=== PATIENT | female | born 1945 | race Caucasian/White ===

== ENCOUNTER 2019-05-19 08:06 | Outpatient (CLI) | payer MEDICARE ==
[2019-05-19 10:06] LABS: CREATININE,URINE 139.8 mg/dL; HB2 TOTAL 12.3 g/dL; HEMOGLOBIN A1C 0.58 g/dL; HEMOGLOBIN A1C % 6.5 % (4.6-6.2); MICROALBUM/CREATININE RATIO,UR 2.9 ug/mg (<30.0); MICROALBUMIN,URINE 0.4 mg/dL (0-300.0)
[2019-05-19 10:08] LABS: ALBUMIN 4.2 g/dL (3.2-5.5); ALBUMIN/GLOBULIN RATIO 1.3 (1.0-2.2); ALKALINE PHOSPHATASE 52 IU/L (42-121); ALT ALANINE AMINOTRANSFERASE 18 IU/L (10-60); AST ASPARTATE AMINOTRANSFERASE 21 IU/L (10-42); BILIRUBIN,TOTAL 0.6 mg/dL (0.2-1.0); BUN - BLOOD UREA NITROGEN 28 mg/dL (6-20); CALCIUM 9.8 mg/dL (8.5-10.3); CARBON DIOXIDE - CO2 26 mmol/L (21-32); CHLORIDE 102 mmol/L (101-111); CHOL/HDL RATIO 3.2 (<4.4); CHOLESTEROL 201 mg/dL; CREATININE 1.2 mg/dL (0.4-1.0); GFR - MDRD 44 (>89); GLUCOSE 136 mg/dL (70-100); HDL CHOLESTEROL 63 mg/dL; LDL CHOLESTEROL,CALCULATED 114 mg/dL; LDL/HDL RATIO 1.8 (<4.4); SODIUM 138 mmol/L (135-145); TOTAL PROTEIN 7.5 g/dL (6.7-8.2); VLDL CHOLESTEROL 24 mg/dL
== END 2019-05-19 08:07 | disposition home or self-care (01) ==
LOC: LAB.S 08:06
PROVIDERS: ATTEND Family Medicine
DX: E11.9 Type 2 diabetes mellitus without complications (principal); E78.5 Hyperlipidemia, unspecified; I25.10 Atherosclerotic heart disease of native coronary artery without angina pectoris; I35.0 Nonrheumatic aortic (valve) stenosis; I48.91 Unspecified atrial fibrillation; Z95.3 Presence of xenogenic heart valve
CPT/HCPCS: 36415; 80053; 80061; 82043; 82570; 83036; 83721

== ENCOUNTER 2019-08-11 08:17 | Outpatient (CLI) | payer MEDICARE | END 2019-08-11 08:18 | disposition home or self-care (01) | LOC: LAB.S 08:17 | PROVIDERS: ATTEND Ophthalmology | DX: Z01.812 Encounter for preprocedural laboratory examination (principal); Z20.828 Contact with and (suspected) exposure to other viral communicable diseases | CPT/HCPCS: 81599 ==

== ENCOUNTER 2019-12-16 08:59 | Outpatient (CLI) | payer MEDICARE ==
[2019-12-16 17:09] LABS: ALBUMIN/GLOBULIN RATIO 1.3 (1.0-2.2); ALKALINE PHOSPHATASE 53 IU/L (42-121); ALT ALANINE AMINOTRANSFERASE 16 IU/L (10-60); AST ASPARTATE AMINOTRANSFERASE 20 IU/L (10-42); BILIRUBIN,TOTAL 0.5 mg/dL (0.2-1.0); BUN - BLOOD UREA NITROGEN 25 mg/dL (6-20); CALCIUM 9.9 mg/dL (8.5-10.3); CARBON DIOXIDE - CO2 28 mmol/L (21-32); CHLORIDE 103 mmol/L (101-111); CHOLESTEROL 179 mg/dL; GLUCOSE 136 mg/dL (70-100); HDL CHOLESTEROL 59 mg/dL; LDL CHOLESTEROL,CALCULATED 90 mg/dL; LDL/HDL RATIO 1.5 (<4.4); SODIUM 139 mmol/L (135-145); TOTAL PROTEIN 7.2 g/dL (6.7-8.2); VLDL CHOLESTEROL 30 mg/dL
[2019-12-16 17:16] LABS: CREATININE,URINE 103.2 mg/dL
[2019-12-16 17:39] LABS: MICROALBUMIN,URINE < 0.2 mg/dL (0-300.0)
[2019-12-16 20:24] LABS: HEMOGLOBIN A1c% 6.2 % (4.27-6.07)
== END 2019-12-16 09:00 | disposition home or self-care (01) ==
LOC: LAB.S 08:59
PROVIDERS: ATTEND Family Medicine
DX: E11.9 Type 2 diabetes mellitus without complications (principal); E78.5 Hyperlipidemia, unspecified; I25.10 Atherosclerotic heart disease of native coronary artery without angina pectoris; I35.0 Nonrheumatic aortic (valve) stenosis; I48.91 Unspecified atrial fibrillation; Z95.3 Presence of xenogenic heart valve
CPT/HCPCS: 36415; 80053; 80061; 82043; 82570; 83036; 83721

== ENCOUNTER 2021-01-31 14:50 | Outpatient (CLI) | payer MEDICARE ==
--- NOTE | 2021-01-31 16:58 | XRAY Report ---
PROCEDURE: Hips 2V BILAT INDICATIONS: HIP PAIN TECHNIQUE: AP view of the pelvis and bilateral frog-leg lateral views of the hips were acquired. COMPARISON: None FINDINGS: Bones: No fractures or dislocations. No suspicious bony lesions. The visualized pelvic ring appear s intact. Soft tissues: No suspicious soft tissue calcifications or masses. IMPRESSION: No evidence acute bony abnormality of the pelvis and bilateral hips. If clinical suspicion and/or symptoms persist, further assessment with repeat plain films or advanced imaging (e.g., CT, MRI, or bone scan) may be helpful for further assessment. Reviewed by: Khari Gutierrez MD on 01/31/2021 4:57 PM PST Approved by: Khari Gutierrez MD on 01/31/2021 4:57 PM PST Station ID: [id number]
== END 2021-01-31 14:51 | disposition home or self-care (01) ==
LOC: DI.S 14:50
PROVIDERS: ATTEND Family Medicine
DX: M25.551 Pain in right hip (principal)

== ENCOUNTER 2021-03-22 07:45 | Outpatient (CLI) | payer MEDICARE ==
[2021-03-22 15:32] LABS: BASOPHILS % (AUTO) 0.4 %; EOSINOPHILS # (AUTO) 0.2 10^3/uL (0.0-0.7); EOSINOPHILS % (AUTO) 4.7 %; HCT - HEMATOCRIT 35.9 % (37.0-47.0); HGB - HEMOGLOBIN 11.6 g/dL (12.0-16.0); LYMPHOCYTES # (AUTO) 1.4 10^3/uL (1.5-3.5); LYMPHOCYTES % (AUTO) 31.8 %; MEAN CORPUSCULAR HEMOGLOBIN 30.1 pg (27.0-31.0); MEAN CORPUSCULAR HGB CONC 32.3 g/dL (32.0-36.0); MEAN CORPUSCULAR VOLUME 93.2 fL (81.0-99.0); MEAN PLATELET VOLUME 11.8 fL (7.9-10.8); MONOCYTES # (AUTO) 0.3 10^3/uL (0.0-1.0); MONOCYTES % (AUTO) 7.1 %; NEUTROPHILS # (AUTO) 2.5 10^3/uL (1.5-6.6); NEUTROPHILS % (AUTO) 55.8 %; PLT - PLATELET COUNT 212 10^3/uL (130-450); RED BLOOD COUNT 3.85 10^6/uL (4.20-5.40); RED CELL DISTRIBUTION WIDTH 11.9 % (12.0-15.0); WHITE BLOOD COUNT 4.5 x10^3/uL (4.8-10.8)
[2021-03-22 15:56] LABS: % IRON SATURATION 19 % (20-50); ALBUMIN 3.9 g/dL (3.2-5.5); ALBUMIN/GLOBULIN RATIO 1.3 (1.0-2.2); ALKALINE PHOSPHATASE 57 IU/L (42-121); ALT ALANINE AMINOTRANSFERASE 15 IU/L (10-60); AST ASPARTATE AMINOTRANSFERASE 19 IU/L (10-42); BILIRUBIN,TOTAL 0.7 mg/dL (0.2-1.0); BUN - BLOOD UREA NITROGEN 30 mg/dL (6-20); CALCIUM 9.9 mg/dL (8.5-10.3); CARBON DIOXIDE - CO2 27 mmol/L (21-32); CHLORIDE 101 mmol/L (101-111); CHOL/HDL RATIO 2.4 (<4.4); CHOLESTEROL 181 mg/dL; CREATININE 1.1 mg/dL (0.4-1.0); GFR - MDRD 49 (>89); GLUCOSE 141 mg/dL (70-100); HDL CHOLESTEROL 75 mg/dL; IRON 74 ug/dL (28-170); LDL CHOLESTEROL,CALCULATED 88 mg/dL; LDL/HDL RATIO 1.2 (<4.4); POTASSIUM 4.4 mmol/L (3.5-5.0); SODIUM 138 mmol/L (135-145); TOTAL IRON BINDING CAPACITY 382 ug/dL (250-450); TOTAL PROTEIN 6.9 g/dL (6.7-8.2); TRANSFERRIN 273 mg/dL (192-382); TRIGLYCERIDES 88 mg/dL; VLDL CHOLESTEROL 18 mg/dL
[2021-03-22 16:00] LABS: CREATININE,URINE 82.8 mg/dL; MICROALBUM/CREATININE RATIO,UR 4.8 ug/mg (<30.0); MICROALBUMIN,URINE 0.4 mg/dL (0-300.0)
[2021-03-22 17:13] LABS: ESTIMATED AVERAGE GLUCOSE 140 mg/dL (70-100); HEMOGLOBIN A1c% 6.5 % (4.27-6.07)
== END 2021-03-22 07:46 | disposition home or self-care (01) ==
LOC: LAB.S 07:45
PROVIDERS: ATTEND Family Medicine
DX: D64.9 Anemia, unspecified (principal); E11.9 Type 2 diabetes mellitus without complications; E78.5 Hyperlipidemia, unspecified
CPT/HCPCS: 36415; 80053; 80061; 82043; 82570; 83036; 83540; 83721; 84466; 85025

== ENCOUNTER 2021-12-28 13:29 | Outpatient (CLI) | payer MEDICARE, BC ==
[2021-12-28 20:00] LABS: ALBUMIN 4.2 g/dL (3.2-5.5); PHOSPHORUS 4.1 mg/dL (2.5-4.6); POTASSIUM 4.3 mmol/L (3.5-5.0)
== END 2021-12-28 13:30 | disposition home or self-care (01) ==
LOC: LAB.S 13:29
PROVIDERS: ATTEND Family Medicine
DX: R79.89 Other specified abnormal findings of blood chemistry (principal)
CPT/HCPCS: 36415; 80069

== ENCOUNTER 2022-03-21 09:42 | Emergency (ER) | payer MEDICARE, BC ==
--- OUTSIDE RECORDS SUMMARY | 2022-03-21 09:48 | EXTERNAL MEDICAL SUMMARY RPT | Continuity of Care Document ---
:1945 Author Organization [facility] Address [address] [place] [address] Phone Care Team Providers Name Role Phone Unavailable Unavailable Unavailable Mery, Provider Unavailable Unavailable Allergies No information. Encounters No information. Functional Status No information. Immunizations No information. Medications date description facility 2022-01-16 00:00 [facility]coxib [facility] 2022-01-17 00:00 celecoxib [facility] 2022-01-16 00:00 celecoxib [facility] 2022-01-17 00:00 celecoxib [facility] 2022-01-16 00:00 celecoxib [facility] 2022-01-17 00:00 celecoxib [facility] 2022-01-16 00:00 celecoxib [facility] 2022-01-17 00:00 celecoxib [facility] Problems date description facility 2022-01-16 00:00 Impacted cerumen of bilateral [facility] 2022-01-16 00:00 Impacted cerumen, bilateral [facility] Procedures date description facility 2022-01-16 00:00 Visit Code Hold [facility] Results/Labs No information. Social History date description facility 2022-01-16 00:00 Never smoker [facility] Vital Signs date measurement value units 2022-01-16 00:00 BMI 23.65 kg/m2 2022-01-16 00:00 BP_diastolic 68 mmHg 2022-01-16 00:00 BP_systolic 127 mmHg 2022-01-16 00:00 heart_rate 83 /min 2022-01-16 00:00 height_metric 160.02 cm 2022-01-16 00:00 height_standard 63 in 2022-01-16 00:00 respiration_rate 14 /min 2022-01-16 00:00 temperature_metric 36.56 C 2022-01-16 00:00 temperature_standard 97.8 F 2022-01-16 00:00 weight_metric 60.33 kg 2022-01-16 00:00 weight_standard 133 lb
[2022-03-21 10:14] LABS: BASOPHILS % (AUTO) 0.6 %; EOSINOPHILS # (AUTO) 0.2 10^3/uL (0.0-0.7); EOSINOPHILS % (AUTO) 3.8 %; HCT - HEMATOCRIT 34.9 % (37.0-47.0); HGB - HEMOGLOBIN 11.4 g/dL (12.0-16.0); LYMPHOCYTES # (AUTO) 1.1 10^3/uL (1.5-3.5); LYMPHOCYTES % (AUTO) 24.1 %; MEAN CORPUSCULAR HEMOGLOBIN 30.2 pg (27.0-31.0); MEAN CORPUSCULAR HGB CONC 32.7 g/dL (32.0-36.0); MEAN CORPUSCULAR VOLUME 92.6 fL (81.0-99.0); MEAN PLATELET VOLUME 10.4 fL (7.9-10.8); MONOCYTES # (AUTO) 0.3 10^3/uL (0.0-1.0); MONOCYTES % (AUTO) 6.8 %; NEUTROPHILS % (AUTO) 64.5 %; PLT - PLATELET COUNT 194 10^3/uL (130-450); RED BLOOD COUNT 3.77 10^6/uL (4.20-5.40); RED CELL DISTRIBUTION WIDTH 11.9 % (12.0-15.0); WHITE BLOOD COUNT 4.7 x10^3/uL (4.8-10.8)
[2022-03-21 10:32] LABS: ALBUMIN 4.1 g/dL (3.2-5.5); ALBUMIN/GLOBULIN RATIO 1.3 (1.0-2.2); CALCIUM 9.8 mg/dL (8.5-10.3); POTASSIUM 4.3 mmol/L (3.5-5.0); TOTAL PROTEIN 7.2 g/dL (6.7-8.2)
--- NOTE | 2022-03-21 10:32 | XRAY Report ---
PROCEDURE: Chest 1 View X-Ray INDICATIONS: Chest Pain TECHNIQUE: One view of the chest was acquired. COMPARISON: None. FINDINGS: Surgical changes and devices: Sternal wires including fractured superior wire is noted. Clips are no ginna overlying the right hemithorax and left axilla. Lungs and pleura: No pleural effusions or pneumothorax. Lungs are clear. Mediastinum: Mediastinal contours appear normal. Heart size is minimally prominent. Bones and chest wall: No suspicious bony lesions. Overlying soft tissues appear unremarkable. IMPRESSION: No acute pulmonary process. Reviewed by: Angelique Mckeon MD on 03/21/2022 10:31 AM [facility] Approved by: Angelique Mckeon MD on 03/21/2022 10:31 AM [facility] Station ID: [id number]
--- NOTE | 2022-03-21 13:32 | ED Physician Documentation ---
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 The pain started last night and has been intermittent. She feels it in the left side of her chest and it is described as sharp and pressure sensation. There are some radiation to her neck. She denies that it is worse with exertion. It is starting to improve since arriving here. She denies a history of coronary artery disease or prior stents. She does have a history of aortic valve replacement and takes aspirin but does not require anticoagulation.She denies feeling short of breath, having abdominal pain, vomiting or diarrhea. She denies lower extremity swelling or pain.She follows with a vocational placement specialist in [place], Dr. Soler.She received aspirin prior to arrival.She reports being active with regular walks and denies having episodes of chest pain during these periods of exertion. Review of Systems Constitutional: denies: Fever Cardiac: reports: Chest pain / pressure Respiratory: denies: Dyspnea GI: denies: Abdominal Pain, Vomiting : denies: Dysuria Musculoskeletal: denies: Back pain Neurologic: denies: Headache PD PAST MEDICAL HISTORY - Present Medications Home Medications: Ambulatory Orders Medication Instructions Recorded Confirmed Rosuvastatin Calcium [Crestor] 5 mg ORAL ONCE 03/21/22 03/21/22 SITagliptin [Januvia] 100 mg PO DAILY 03/21/22 03/21/22 - Allergies Allergies/Adverse Reactions: Allergies Allergy/AdvReac Type Severity Reaction Status Date / Time amoxicillin Allergy Hives Verified 03/21/22 09:52 ampicillin Allergy Hives Verified 03/21/22 09:52 PD ED PE NORMAL - General General: Alert and oriented X 3, No acute distress, Well developed/nourished - HEENT HEENT: Atraumatic - Neck Neck: Supple, no meningeal sign - Cardiac Cardiac: RRR. No: No murmur (Murmur present due to Bioprosthetic valve) - Respiratory Respiratory: No respiratory distress, Clear bilaterally - Abdomen Abdomen: Soft, Non tender, Non distended - Derm Derm: Warm and dry - Extremities Extremities: No edema, No calf tenderness / cord - Neuro Neuro: Normal speech Results - Vitals Vitals: Vital Signs - 24 hr 03/21/22 03/21/22 03/21/22 09:52 10:38 12:41 Temperature 37.1 C Heart Rate 65 73 79 Respiratory 14 18 18 Rate Blood Pressure 170/135 H 96/77 122/69 O2 Saturation 100 97 98 03/21/22 13:43 Temperature Heart Rate 81 Respiratory 14 Rate Blood Pressure 115/66 O2 Saturation 99 Oxygen O2 Source Room air - EKG (time done) 0956 Rate: Rate (enter#) (75) Rhythm: NSR Ischemia: T wave inversion (Anterior leads). No: ST elevation c/w ischemia Compare to prior EKG: Old EKG unavailable - Labs Labs: Laboratory Tests 03/21/22 03/21/22 03/21/22 10:05 10:05 10:05 WBC 4.7 L RBC 3.77 L Hgb 11.4 L Hct 34.9 L MCV 92.6 MCH 30.2 MCHC 32.7 RDW 11.9 L Plt Count 194 MPV 10.4 Neut # (Auto) 3.0 Lymph # (Auto) 1.1 L [place] # (Auto) 0.3 Eos # (Auto) 0.2 Baso # (Auto) 0.0 Absolute Nucleated RBC 0.00 Nucleated RBC % 0.0 Sodium 138 Potassium 4.3 Chloride 102 Carbon Dioxide 26 Anion Gap 10.0 BUN 22 H Creatinine 1.0 Estimated GFR (MDRD) 54 L Glucose 125 H Calcium 9.8 Total Bilirubin 1.0 AST 22 ALT 17 Alkaline Phosphatase 53 Troponin I High Sens < 2.3 L Total Protein 7.2 Albumin 4.1 Globulin 3.1 Albumin/Globulin Ratio 1.3 Lipase 46 03/21/22 12:50 WBC RBC Hgb Hct MCV MCH MCHC RDW Plt Count MPV Neut # (Auto) Lymph # (Auto) [place] # (Auto) Eos # (Auto) Baso # (Auto) Absolute Nucleated RBC Nucleated RBC % Sodium Potassium Chloride Carbon Dioxide Anion Gap BUN Creatinine Estimated GFR (MDRD) Glucose Calcium Total Bilirubin AST ALT Alkaline Phosphatase Troponin I High Sens < 2.3 L Total Protein Albumin Globulin Albumin/Globulin Ratio Lipase PD Medical Decision Making - ED course Complexity details: reviewed results, re-evaluated patient, d/w patient, d/w family (Patient's at the bedside) ED course: Patient is a 76-year-old presenting for evaluation of chest pain that has been intermittent since last night. She does not appear to be exertional in nature. Her EKG demonstrates inverted T waves in V1 and V2. I am not able to view any prior EKGs through our system or [facility] for comparison. However patient was able to pull up an EKG report on her phone from 2019 that describes inverted T waves in Precordial leads.We did reach out to patient's cardiology office and did not receive a call back.Her high-sensitivity troponin is negative x2 with 3 hours between results.She denies symptoms that would suggest a PE or dissection.She does not appear septic or have signs of pneumonia.She is not in heart failure.She is symptom-free here. She is comfortable with plan for discharge with close outpatient follow-up with her vocational placement specialist. She is advised on strict return precautions. Departure - Departure Disposition: 01 Home, Self Care Clinical Impression: Chest pain Condition: Stable Instructions: ED Chest Pain Atypical Unkn Cause Follow-Up: Hank Velazquez MD [Physician No Access] - Comments: Please call your vocational placement specialist for close outpatient follow-up. You may need further testing such as a stress test or ultrasound of your heart. If it anytime you have recurrence of your symptoms please return to the emergency department. Discharge Date/Time: 03/21/22 13:43
[2022-03-21 13:52] VITALS: BP 115/66
== END 2022-03-21 13:43 | disposition home or self-care (01) ==
LOC: EDUNIT# → ED 09:42
DX: R07.9 Chest pain, unspecified (principal)
CPT/HCPCS: 36415; 80053; 83690; 84484; 85025; 93005; 99284

== ENCOUNTER 2023-08-07 07:36 | Outpatient (CLI) | payer MEDICARE, BC ==
[2023-08-07 14:16] LABS: BASOPHILS % (AUTO) 0.7 %; EOSINOPHILS # (AUTO) 0.3 10^3/uL (0.0-0.7); EOSINOPHILS % (AUTO) 6.7 %; HCT - HEMATOCRIT 39.9 % (37.0-47.0); HGB - HEMOGLOBIN 12.6 g/dL (12.0-16.0); LYMPHOCYTES # (AUTO) 1.4 10^3/uL (1.5-3.5); LYMPHOCYTES % (AUTO) 33.4 %; MEAN CORPUSCULAR HEMOGLOBIN 29.9 pg (27.0-31.0); MEAN CORPUSCULAR HGB CONC 31.6 g/dL (32.0-36.0); MEAN CORPUSCULAR VOLUME 94.5 fL (81.0-99.0); MEAN PLATELET VOLUME 11.5 fL (7.9-10.8); MONOCYTES # (AUTO) 0.3 10^3/uL (0.0-1.0); MONOCYTES % (AUTO) 7.9 %; NEUTROPHILS # (AUTO) 2.1 10^3/uL (1.5-6.6); NEUTROPHILS % (AUTO) 51.1 %; PLT - PLATELET COUNT 179 10^3/uL (130-450); RED BLOOD COUNT 4.22 10^6/uL (4.20-5.40); RED CELL DISTRIBUTION WIDTH 11.9 % (12.0-15.0); WHITE BLOOD COUNT 4.2 x10^3/uL (4.8-10.8)
[2023-08-07 14:35] LABS: % IRON SATURATION 17 % (20-50); ALBUMIN 4.4 g/dL (3.2-5.5); ALBUMIN/GLOBULIN RATIO 1.6 (1.0-2.2); ALKALINE PHOSPHATASE 59 IU/L (42-121); ALT ALANINE AMINOTRANSFERASE 15 IU/L (10-60); AST ASPARTATE AMINOTRANSFERASE 20 IU/L (10-42); BILIRUBIN,TOTAL 0.6 mg/dL (0.2-1.0); BUN - BLOOD UREA NITROGEN 25 mg/dL (6-20); CALCIUM 10.5 mg/dL (8.5-10.3); CARBON DIOXIDE - CO2 31 mmol/L (21-32); CHLORIDE 102 mmol/L (101-111); CHOL/HDL RATIO 2.4 (<4.4); CHOLESTEROL 151 mg/dL; GFR - MDRD 54 (>89); GLUCOSE 129 mg/dL (74-104); HDL CHOLESTEROL 62 mg/dL; IRON 67 ug/dL (50-212); LDL CHOLESTEROL,CALCULATED 62 mg/dL; POTASSIUM 4.3 mmol/L (3.5-4.5); SODIUM 139 mmol/L (135-145); TOTAL IRON BINDING CAPACITY 385 ug/dL (250-450); TOTAL PROTEIN 7.1 g/dL (6.4-8.9); TRANSFERRIN 275 mg/dL (203-362); TRIGLYCERIDES 134 mg/dL (48-352); VLDL CHOLESTEROL 27 mg/dL
[2023-08-07 14:48] LABS: THYROID STIMULATING HORMONE 2.55 uIU/mL (0.34-5.60)
[2023-08-07 14:49] LABS: ESTIMATED AVERAGE GLUCOSE 146 mg/dL (70-100); HEMOGLOBIN A1c% 6.7 % (4.27-6.07)
[2023-08-07 14:57] LABS: CREATININE,URINE 57.2 mg/dL; MICROALBUMIN,URINE < 0.7 mg/dL
== END 2023-08-07 07:37 | disposition home or self-care (01) ==
LOC: LAB.S 07:36
PROVIDERS: ATTEND Family Medicine
DX: Z00.00 Encounter for general adult medical examination without abnormal findings (principal); E11.9 Type 2 diabetes mellitus without complications; D64.9 Anemia, unspecified
CPT/HCPCS: 36415; 80053; 80061; 82043; 82570; 83036; 83540; 83721; 84443; 84466; 85025

== ENCOUNTER 2023-09-19 01:08 | Outpatient (CLI) | payer MEDICARE, BC | END 2023-09-19 22:25 | disposition critical access hospital (66) | LOC: EMS 01:08 | DX: R10.13 Epigastric pain (principal); R11.10 Vomiting, unspecified; I48.91 Unspecified atrial fibrillation | CPT/HCPCS: A0425; A0429 ==

== ENCOUNTER 2023-09-19 01:45 | Emergency (ER) | payer MEDICARE, BC ==
--- NOTE | 2023-09-19 01:55 | ED Physician Documentation ---
PD HPI ABD PAIN - Stated complaint Stated Complaint: ABD PX/CRAMPING - Chief complaint Chief Complaint: Abd Pain - History obtained from History obtained from: Patient - Additional information Additional information: BIBA. HPI from patient. Patient complains of waxing and waning pain since 8:30 PM tonight of her lower chest and upper abdomen. Onset was while walking around her garden. There is no inciting event, the pain waxes and wanes without apparent exacerbating/ameliorating factors. At its most severe, the pain is associate with nausea and vomiting. She denies history of similar symptoms. Past surgical history has not noted cholecystectomy, hysterectomy, bilateral oophorectomy, appendectomy, aortic valve replacement. Past medical history also includes CAD with rest angina. Patient says her symptoms do not feel similar to her angina. 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 : None Psych: None Musculoskeletal: None - Past Surgical History Past Surgical History: No - Present Medications Home Medications: Ambulatory Orders Medication Instructions Recorded Confirmed Rosuvastatin Calcium [Crestor] 5 mg ORAL ONCE 03/21/22 03/21/22 SITagliptin [Januvia] 100 mg PO DAILY 03/21/22 03/21/22 Ciprofloxacin HCl [Cipro] 500 mg PO BID #14 tablet 09/19/23 metroNIDAZOLE [Flagyl] 500 mg PO BID 7 Days #14 tablet 09/19/23 oxyCODONE [Roxicodone] 5 mg PO Q4-6H PRN #14 tablet 09/19/23 - Allergies Allergies/Adverse Reactions: Allergies Allergy/AdvReac Type Severity Reaction Status Date / Time amoxicillin Allergy Hives Verified 09/19/23 01:50 ampicillin Allergy Hives Verified 09/19/23 01:50 - Social History Does the pt smoke?: No Smoking Status: Never smoker Does the pt drink ETOH?: Yes Does the pt have substance abuse?: No - Immunizations Immunizations are current?: Yes - POLST Patient has POLST: No PD ED PE NORMAL - Vitals Vital signs reviewed: Yes - General General: Alert and oriented X 3, No acute distress, Well developed/nourished - Cardiac Cardiac: No murmur - Respiratory Respiratory: No respiratory distress, Clear bilaterally - Abdomen Abdomen: Soft, Non distended, Other (TTP periumbilicus and RLQ with voluntary guaring of RLQ but no rebound) - Derm Derm: No rash PD ED PE EXPANDED - Cardiac Cardiac: Irregularly irregular Results - Vitals Vitals: Vital Signs - 24 hr 09/19/23 09/19/23 09/19/23 01:51 01:59 03:00 Temperature 36.3 C L Heart Rate 69 74 93 Respiratory 14 18 Rate Blood Pressure 142/83 H 133/68 H O2 Saturation 94 95 09/19/23 04:58 Temperature Heart Rate 85 Respiratory 16 Rate Blood Pressure 114/69 O2 Saturation 98 Oxygen O2 Source Room air - EKG (time done) No standard instances EKG releavant findings:: EKG personally interpreted by author of this note. Relevant findings are: Rate: Rate (enter#) (79) Rhythm: Atrial fibrillation Poth: Normal Ischemia: Normal ST segments - Labs Labs: Laboratory Tests 09/19/23 09/19/23 09/19/23 01:51 01:51 01:51 WBC 8.8 RBC 3.78 L Hgb 11.6 L Hct 34.6 L MCV 91.5 MCH 30.7 MCHC 33.5 RDW 12.1 Plt Count 175 MPV 11.1 H Neut # (Auto) 7.6 H Lymph # (Auto) 0.9 L [place] # (Auto) 0.2 Eos # (Auto) 0.0 Baso # (Auto) 0.0 Absolute Nucleated RBC 0.00 Nucleated RBC % 0.0 Sodium 138 Potassium 3.8 Chloride 101 Carbon Dioxide 26 Anion Gap 11.0 BUN 23 H Creatinine 1.0 Estimated GFR (MDRD) 54 L Glucose 180 H Calcium 10.0 Total Bilirubin 0.5 AST 18 ALT 13 Alkaline Phosphatase 59 Troponin I High Sens 2.7 Total Protein 7.0 Albumin 4.1 Globulin 2.9 Albumin/Globulin Ratio 1.4 Lipase 19 Urine Color Urine Clarity Urine pH Ur Specific [place] Urine Protein Urine Glucose (UA) Urine Ketones Urine Occult Blood Urine Nitrite Urine Bilirubin Urine Urobilinogen Ur Leukocyte Esterase Ur Microscopic Review Urine Culture Comments 09/19/23 02:40 WBC RBC Hgb Hct MCV MCH MCHC RDW Plt Count MPV Neut # (Auto) Lymph # (Auto) [place] # (Auto) Eos # (Auto) Baso # (Auto) Absolute Nucleated RBC Nucleated RBC % Sodium Potassium Chloride Carbon Dioxide Anion Gap BUN Creatinine Estimated GFR (MDRD) Glucose Calcium Total Bilirubin AST ALT Alkaline Phosphatase Troponin I High Sens Total Protein Albumin Globulin Albumin/Globulin Ratio Lipase Urine Color YELLOW Urine Clarity CLEAR Urine pH 8.0 H Ur Specific [place] 1.020 Urine Protein NEGATIVE Urine Glucose (UA) >=1000 H Urine Ketones 15 H Urine Occult Blood NEGATIVE Urine Nitrite NEGATIVE Urine Bilirubin NEGATIVE Urine Urobilinogen 0.2 (NORMAL) Ur Leukocyte Esterase NEGATIVE Ur Microscopic Review NOT INDICATED Urine Culture Comments NOT INDICATED - Rads (name of study) CT A/P with IV contrast Relevant Findings:: Prelim report reviewed, See rad report PD Medical Decision Making - ED course Complexity details: reviewed results, re-evaluated patient, considered differential, d/w patient ED course: No concerning nor diagnostic findings on EKG, blood tests. Normal WBC, mildly low hgb (11.6). elevated BUN (23) with normal creatinine (1.0). Mild hyperglycemia (180). Normal hs-cTn (2.7), normal LFTs and lipase. UA with glucosuria and 15 ketones but o/w unremarkable. CT A/P with findings c/w enterocolitis including terminal ileum (which would explain the RLQ TTP). Mesenteric edema and trace free fluid noted. IV established by EMS and after completion of the 1 liter NS initiated by EMS in the field, she is given a second liter NS IV in ED. She is also given 0.5 mg IV Dilaudid (patient says she has a strong reaction to pain medications, typically needing a lower dose than would be expected). On reevaluation, patient is in NAD and reports excellent pain relief with this single dose of Dilaudid. Results discussed with patient. She says she is comfortable going home at this time. On reexamination, she still has some residual right lower quadrant tenderness but is no longer exhibiting (voluntary) guarding and has no rebound tenderness. To cover possible bacterial etiology, she is given 500 mg of Cipro and 500 mg of Flagyl (both were given p.o.), and I have electronically submitted a prescription for a 1-week course of these medications to her pharmacy of choice. I also e-prescribed oxycodone (says she still has some at home but suspects it is outdated). Return precautions are carefully reviewed. Advised to follow-up with her PCP or exhibit electrician as soon as can be arranged for reevaluation. Departure - Departure Disposition: 01 Home, Self Care Clinical Impression: Enterocolitis Condition: Good Instructions: ED Abdominal Pain Female Non-Specific Abdominal Pain Follow-Up: ALANIS PATTON MD [Primary Care Provider] - Prescriptions: Ciprofloxacin HCl [Cipro] 500 mg PO BID #14 tablet metroNIDAZOLE [Flagyl] 500 mg PO BID 7 Days #14 tablet oxyCODONE [Roxicodone] 5 mg PO Q4-6H PRN #14 tablet PRN Reason: Pain >8 Comments: There were no concerning findings on tonight's blood tests, urinalysis. The findings on the CT scan of your abdomen and pelvis show inflammation of both the small and large intestine; the generic term for this is enterocolitis. There are various causes of enterocolitis and a specific cause is rarely able to be determined in the ER. Because bacterial infection is one possible such cause, you were given the first doses of two different antibiotics (ciprofloxacin and metronidazole) in the emergency department, and I have electronically submitted a 1-week course of these antibiotics to the [facility] in [place]. I have also submitted a prescription for oxycodone. Follow-up with your exhibit electrician as soon as can be arranged for reevaluation. I am prescribing a short course of narcotic pain medication for you. These are potentially dangerous and addictive medications that should be used carefully. These medications may constipate you. Take an [id number] stool softener (docusate) twice daily with plenty of water while taking these medications. If you go 24 hours without a bowel movement, take [id number] miralax, per package instructions. Do not drink or drive while taking these medications. If you received narcotic or sedating medications while in the emergency department, do not drive for 24 hours. Store this medication in a safe, secure place and out of reach of children. It is a violation of federal law to give or sell this medication to another person or to use in a manner other than prescribed. The ED will not refill narcotic prescriptions, including prescriptions lost or stolen. To dispose of unwanted medications: 1. [facility] at [address] in [place] has a medication drop box. They accept prescription medications (in pill form) Sunday through Sunday 9:00 a.m. to 5:00 p.m. 2. The [facility] [employer] accepts prescription medications (in pill form only) for disposal year round. Call for more information. 3. Contact the [facility] for the next [facility] sponsored prescription drug collection event. , [phone], or [phone]; Discharge Date/Time: 09/19/23 04:59
[2023-09-19 02:00] LABS: BASOPHILS % (AUTO) 0.2 %; EOSINOPHILS % (AUTO) 0.5 %; HCT - HEMATOCRIT 34.6 % (37.0-47.0); HGB - HEMOGLOBIN 11.6 g/dL (12.0-16.0); LYMPHOCYTES # (AUTO) 0.9 10^3/uL (1.5-3.5); LYMPHOCYTES % (AUTO) 9.8 %; MEAN CORPUSCULAR HEMOGLOBIN 30.7 pg (27.0-31.0); MEAN CORPUSCULAR HGB CONC 33.5 g/dL (32.0-36.0); MEAN CORPUSCULAR VOLUME 91.5 fL (81.0-99.0); MEAN PLATELET VOLUME 11.1 fL (7.9-10.8); MONOCYTES # (AUTO) 0.2 10^3/uL (0.0-1.0); MONOCYTES % (AUTO) 2.5 %; NEUTROPHILS # (AUTO) 7.6 10^3/uL (1.5-6.6); NEUTROPHILS % (AUTO) 86.5 %; PLT - PLATELET COUNT 175 10^3/uL (130-450); RED BLOOD COUNT 3.78 10^6/uL (4.20-5.40); RED CELL DISTRIBUTION WIDTH 12.1 % (12.0-15.0); WHITE BLOOD COUNT 8.8 x10^3/uL (4.8-10.8)
[2023-09-19 02:19] LABS: ALBUMIN 4.1 g/dL (3.2-5.5); ALBUMIN/GLOBULIN RATIO 1.4 (1.0-2.2); BILIRUBIN,TOTAL 0.5 mg/dL (0.2-1.0); POTASSIUM 3.8 mmol/L (3.5-4.5)
[2023-09-19] MEDS: HYDROmorphone 1 MG/ML CARPUJECT IVP STA (02:24)
[2023-09-19] MEDS ORDERED: iohexoL-300 100 ML VIAL ONE (02:30)
[2023-09-19] MEDS: HYDROmorphone 0.5 MG/0.5 ML SYRINGE IVP STA (02:36)
[2023-09-19] MEDS: SODIUM CHLORIDE 0.9% 1,000 ML IV STA (02:37)
[2023-09-19 02:43] LABS: BILIRUBIN,URINE NEGATIVE (NEGATIVE); GLUCOSE, URINE (UA) >=1000 mg/dL (NEGATIVE); KETONES,URINE (UA) 15 mg/dL (NEGATIVE); LEUKOCYTE ESTERASE, URINE NEGATIVE (NEGATIVE); NITRITE,URINE NEGATIVE (NEGATIVE); OCCULT BLOOD,URINE NEGATIVE (NEGATIVE); PROTEIN,URINE NEGATIVE (NEGATIVE); UROBILINOGEN,URINE 0.2 (NORMAL) E.U./dL (NORMAL)
[2023-09-19] MEDS ORDERED: SODIUM CHLORIDE 0.9% 1,000 ML IV STA (02:43)
[2023-09-19 02:46] LABS: CLARITY,URINE CLEAR (CLEAR)
[2023-09-19] MEDS: iohexoL-300 100 ML VIAL IVP ONE (03:02)
[2023-09-19] MEDS ORDERED: metroNIDAZOLE 250 MG TABLET PO ONE (04:52)
[2023-09-19] MEDS: CIPROFLOXACIN 250 MG TABLET PO STA (04:54)
[2023-09-19] MEDS: metroNIDAZOLE 250 MG TABLET PO STA (04:54)
[2023-09-19 04:59] VITALS: BP 114/69; O2SAT 98
--- NOTE | 2023-09-19 08:32 | CT Report ---
PROCEDURE: Abdomen/Pelvis W INDICATIONS: abd. pain, RLQ tenderness CONTRAST: Omni 300, 100mls TECHNIQUE: After the administration of intravenous contrast, a CT scan of the abdomen and pelvis was performed. Images were recorded and evaluated at appropriate window settings. Reformats: coronal and sagittal. F or radiation dose reduction, the following was used: automated exposure control, adjustment of mA and /or kV according to patient size. COMPARISON: None. FINDINGS: Image quality: Diagnostic Lower chest: Small right Bochdalek's hernia. Basal atelectasis. Liver: Unremarkable Gallbladder and biliary system: Absent, nondilated allowing for postsurgical state Pancreas: No ductal dilation Spleen: Nonenlarged Adrenals: No discrete nodules Kidneys: No solid mass or hydronephrosis Vessels and lymph nodes: Main portal vein is patent. No abdominal aortic aneurysm. No pathologic lymp h nodes by size criteria. Bowel and peritoneum: No small bowel obstruction. There is a small amount pelvic free fluid, without drainable rim-enhancing abscess. Prominent appendix with internal gas stranding. Moderate inflammator y changes in the distal small bowel, which is fluid-filled and ectatic. Mild wall thickening also see n in the distal colon. Body wall: Unremarkable Pelvis: Bladder is unremarkable. Uterus is absent Bones: No acute or suspicious osseous finding. IMPRESSION: The appendix is prominent, but with internal gas, suggesting patency. No significant periappendiceal inflammation. Moderate findings of enteritis and mild colitis. Prominent distal small bowel loops filled with fluid , likely related to enteritis, without evidence of complete obstruction. Small pelvic free fluid, likely reactive. No rim-enhancing abscess. Other findings as above. Agree with preliminary report. Reviewed by: Edinson Edmondson MD on 09/19/2023 8:31 AM PDT Approved by: Edinson Edmondson MD on 09/19/2023 8:31 AM PDT Station ID: [id number]
== END 2023-09-19 04:59 | disposition home or self-care (01) ==
LOC: EDUNIT# → ED 01:45
DX: K52.9 Noninfective gastroenteritis and colitis, unspecified (principal); I48.91 Unspecified atrial fibrillation; I25.119 Atherosclerotic heart disease of native coronary artery with unspecified angina pectoris; Z79.899 Other long term (current) drug therapy; Z79.84 Long term (current) use of oral hypoglycemic drugs
CPT/HCPCS: 36415; 74177; 80053; 81003; 83690; 84484; 85025; 93005; 96374; 99284; A9270; J1170; Q9967; 81001; 87086